=== PATIENT | female | born 1955 | race Caucasian/White ===

== ENCOUNTER 2017-05-11 17:41 | Emergency (ER) | payer SELFPAY ==
[2017-05-11 18:02] VITALS: BP 140/71
[2017-05-11] MEDS ORDERED: Albuterol/Ipratropium 3.0-0.5 MG/3 ML Neb Soln NEB ONE (18:48)
--- NOTE | 2017-05-11 18:57 | EDM.PDOC ---
ED HPI GENERAL MEDICAL PROBLEM - General Chief Complaint: Respiratory Problem Stated Complaint: [id number] SOB BRONCHITUS Time Seen by Provider: 05/11/17 18:52 Source of Information: Reports: Patient History Limitations: Reports: No Limitations - History of Present Illness INITIAL COMMENTS - FREE TEXT/NARRATIVE: states been sick with head congestion & wheezing cough. gives h/o asthma. seen PMD given few courses of ABX but not getting better. Middle Chest Pain Score (Numeric/FACES): 8 - Related Data Allergies Allergy/AdvReac Type Severity Reaction Status Date / Time midazolam HCl [From Versed] Allergy Rash Verified 11/21/13 12:03 Penicillins Allergy Hives Verified 11/21/13 12:03 pseudoephedrine HCl Allergy Rash Verified 11/21/13 12:03 [From Sudafed] Tetracyclines Allergy Rash Verified 03/18/15 18:07 Home Meds: Home Meds Nortriptyline 40 mg PO BEDTIME 03/18/15 [History] Orphenadrine [Norflex] 100 mg PO ASDIRECTED PRN 03/18/15 [History] Sertraline [Zoloft] 25 mg PO BEDTIME 03/18/15 [History] atorvaSTATin [Lipitor] 10 mg PO BEDTIME 03/18/15 [History] Past Medical History Cardiovascular History: Reports: High Cholesterol Respiratory History: Reports: Asthma Musculoskeletal History: Reports: Other (See Below) Other Musculoskeletal History: DJD Neurological History: Reports: Migraines, Other (See Below) 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 Psychiatric History: Reports: Anxiety - Infectious Disease History Infectious Disease History: Reports: Other (See Below) Other Infectious Disease History: [place] - Past Surgical History HEENT Surgical History: Reports: Adenoidectomy, Tonsillectomy GI Surgical History: Reports: Cholecystectomy, Hernia Repair/Other Female Surgical History: Reports: Section, Hysterectomy Social & Family History - Tobacco Use Smoking Status *Q: Never Smoker Second Hand Smoke Exposure: No - Caffeine Use Caffeine Use: Reports: Coffee, Soda, Tea - Recreational Drug Use Recreational Drug Use: No ED ROS GENERAL - Review of Systems Review Of Systems: ROS reveals no pertinent complaints other than HPI. ED EXAM, GENERAL - Physical Exam Exam: See Below Exam Limited By: No Limitations General Appearance: Alert, WD/WN, Mild Distress, Other (episodic cough spasms) Ears: Normal External Exam, Normal Canal, Hearing Grossly Normal Ear Exam: Bilateral Ear: TM Dull Nose: Nasal Swelling Throat/Mouth: Normal Voice, No Airway Compromise Head: Atraumatic, Sinus Tenderness Neck: Non-Tender, Full Range of Motion Respiratory/Chest: No Respiratory Distress, No Accessory Muscle Use, Rhonchi, Wheezing. No: Decreased Breath Sounds, Accessory Muscle Use, Retractions, Splinting Cardiovascular: Regular Rate, Rhythm GI/Abdominal: Soft, Non-Tender Extremities: Normal Inspection Neurological: Alert, Oriented, Normal Cognition, Normal Gait, No Motor/Sensory Deficits Psychiatric: Flat Affect Skin Exam: Warm, Dry, Normal Color Lymphatic: No Adenopathy Course - Vital Signs Last Recorded V/S: Last Vital Signs Temp 38.4 C H 05/11/17 18:01 Pulse 101 H 05/11/17 18:01 Resp 16 05/11/17 18:01 BP 140/71 05/11/17 18:01 Pulse Ox 95 05/11/17 18:01 - Orders/Labs/Meds Orders: Active Orders 24 hr Category Date Time Status RT Aerosol Therapy [RC] ASDIRECTED Care 05/11/17 18:49 Active Chest 2V [CR] Urgent Exams 05/11/17 18:01 Taken CULTURE BLOOD [BC] Stat Lab 05/11/17 18:12 Received CULTURE BLOOD [BC] Stat Lab 05/11/17 18:17 Received Blood Culture x2 Reflex Set [OM.PC] Stat Oth 05/11/17 18:01 Ordered Labs: Laboratory Tests 05/11/17 05/11/17 05/11/17 Range/Units 18:12 18:12 18:12 WBC 7.7 (5.0-10.0) 10^3/uL RBC 4.18 L (4.2-5.4) 10^6/uL Hgb 13.4 (12.0-16.0) g/dL Hct 39.8 (37.0-47.0) % MCV 95.2 (80-100) fL MCH 32.1 (27.0-34.0) pg MCHC 33.7 (33.0-35.0) g/dL Plt Count 191 (150-450) 10^3/uL Neut % (Auto) 66.9 (42.2-75.2) % Lymph % (Auto) 17.1 L (20.5-50.1) % Pershing % (Auto) 12.3 H (2-8) % Eos % (Auto) 3.4 H (1.0-3.0) % Baso % (Auto) 0.3 (0.0-1.0) % Sodium 136 (135-145) mmol/L Potassium 3.7 (3.6-5.0) mmol/L Chloride 101 (101-111) mmol/L Carbon Dioxide 28.0 (21.0-31.0) mmol/L Anion Gap 10.7 BUN 13 (7-18) mg/dL Creatinine 1.0 (0.6-1.3) mg/dL Est Cr Clr Drug Dosing 46.72 mL/min Estimated GFR (MDRD) 56 BUN/Creatinine Ratio 13.00 Glucose 126 H (74-105) mg/dL Lactic Acid 1.0 (0.5-2.2) mmol/L Calcium 9.2 (8.4-10.2) mg/dl Total Bilirubin 0.8 (0.2-1.0) mg/dL AST 24 (10-42) IU/L ALT 25 (10-60) IU/L Alkaline Phosphatase 42 (42-121) IU/L Total Protein 6.9 (6.7-8.2) g/dl Albumin 4.0 (3.2-5.5) g/dl Globulin 2.9 Albumin/Globulin Ratio 1.38 Meds: Medications Discontinued Medications Generic Name Dose Route Start Last Admin Trade Name Freq PRN Reason Stop Dose Admin Albuterol/Ipratropium 3 ml 05/11/17 18:48 05/11/17 18:55 Duoneb 3.0-0.5 Mg/3 Ml NEB 05/11/17 18:49 3 ml ONETIME ONE Administration Methylprednisolone Sodium Succinate 125 mg 05/11/17 19:08 Solu-Medrol IM 05/11/17 19:09 ONETIME ONE Methylprednisolone Sodium Succinate 125 mg 05/11/17 19:11 Solu-Medrol IVPUSH 05/11/17 19:12 ONETIME ONE - Re-Assessments/Exams Free Text/Narrative Re-Assessment/Exam: 05/11/17 19:12 re-exam s/p doneb=much better now. Departure - Departure Time of Disposition: 19:13 Disposition: Home, Self-Care 01 Condition: Good Clinical Impression: Sinusitis Qualifiers: Sinusitis location: ethmoidal Chronicity: acute Recurrence: recurrent Qualified Code(s): J01.21 - Acute recurrent ethmoidal sinusitis Asthmatic bronchitis with acute exacerbation Qualifiers: Asthma severity: moderate Asthma persistence: persistent Qualified Code(s): J45.41 - Moderate persistent asthma with (acute) exacerbation - Discharge Information Instructions: Sinus Headache Forms: ED Department Discharge Additional Instructions: 1) rest as much as possible 2) use neb 3 times daily for cough and wheeze 3) sleep as much as possible 4) drink lots of liquids 5) recheck as needed - My Orders Last 24 Hours: My Active Orders 05/11/17 18:49 RT Aerosol Therapy [RC] ASDIRECTED - Assessment/Plan Last 24 Hours: My Active Orders 05/11/17 18:49 RT Aerosol Therapy [RC] ASDIRECTED
[2017-05-11] MEDS ORDERED: methylPREDNISolone Sodium Succinate 125 MG/2 ML SDV IM ONE (19:08)
[2017-05-11] MEDS ORDERED: methylPREDNISolone Sodium Succinate 125 MG/2 ML SDV IVPUSH ONE (19:11)
[2017-05-11] MEDS ORDERED: Acetaminophen 325 MG Tab PO ONE (19:22)
[2017-05-11] MEDS ORDERED: Sodium Chloride 0.9% 1,000 ML IV ONE ×2 (19:23→20:33)
[2017-05-11] MEDS ORDERED: Ketorolac 30 MG/ML SDV IVPUSH ONE ×2 (19:23→20:48)
== END 2017-05-11 21:20 | disposition home or self-care (01) ==
LOC: DL.ED 17:41
DX: J45.41 Moderate persistent asthma with (acute) exacerbation (principal); J01.21 Acute recurrent ethmoidal sinusitis; E78.00 Pure hypercholesterolemia, unspecified; Z88.0 Allergy status to penicillin; Z88.1 Allergy status to other antibiotic agents; Z88.8 Allergy status to other drugs, medicaments and biological substances
CPT/HCPCS: 36415; 71046; 80053; 83605; 85025; 87040; 94640; 96361; 96374; 96375; 96376; 99284; A9270; J1885; J2930; J7030